=== PATIENT | female | born 1985 | race Caucasian/White ===

== ENCOUNTER 2016-12-18 13:00 | Inpatient (IN) | payer OTHER ==
[2016-12-18] MEDS ORDERED: AMPICILLIN - 2 GM in SODIUM CHLORIDE 100 ML IVPB ONE ×2 (17:36→18:15)
[2016-12-18] MEDS ORDERED: DEXTROSE 5%-LACTATED RINGERS 1,000 ML IV ONE (18:15)
[2016-12-18] MEDS ORDERED: TUBERCULIN PPD 5 TU/0.1ML SYRINGE (IN PATIENT USE ONLY) ID ONE (18:15)
[2016-12-18 18:36] LABS: BASOPHIL 0.3 % (0-2.0); EOSINOPHIL 0.7 % (0-4.5); MCH 26.6 pg (25.7-33.7); MCHC 32.6 g/dl (32.0-36.0); MEAN CELL VOLUME 81.5 fl (80-96); MEAN PLT VOLUME 10.6 fl (7.5-11.1); NEUTROPHILS 68.4 % (42.8-82.8); PLATELET COUNT 183 K/MM3 (134-434); WHITE BLOOD COUNT 10.1 K/mm3 (4.0-10.0)
[2016-12-18 18:41] LABS: INR 1.03 (0.82-1.09); PROTHROMBIN TIME (PATIENT) 11.3 SEC (9.98-11.88)
[2016-12-18 18:44] LABS: ACTIVATED PTT 26.8 SECONDS (26.9-34.4)
[2016-12-18 19:07] LABS: CALCIUM 8.9 mg/dL (8.5-10.1); COCKROFT - GAULT 0.8245; CREATININE 0.7 mg/dL (0.55-1.02)
[2016-12-18 20:31] VITALS: BP 122/72; PULSE 76; TEMP 98.2
--- NOTE | 2016-12-18 20:53 | HP ---
Past Medical History - Primary Care Physician PCP:: Corrine Villegas - Admission Chief Complaint: r/o Sponntaneous rupture of membranes. IUp at 37.2 weeks History of Present Illness: 31 yo EDC 01/06/17 ega 37.2 weeks admitted due to possible rupture of membranes History Source: Patient - Past Medical History ...: 5 ...Para: 2 ...Term: 2 ...: 0 ...Spon : 0 ...Induced : 2 ...LMP: 04/02/16 ... Weeks Gestation by Dates: 37.1 ...EDC by Dates: 01/07/17 ...EDC by Sono: 01/06/17 - Past Surgical History Past Surgical History: Yes: Cholecystectomy Hx Myomectomy: No Hx Transabdominal Cerclage: No - Smoking History Smoking history: Never smoked Have you smoked in the past 12 months: No Aproximately how many cigarettes per day: 0 - Alcohol/Substance Use Hx Alcohol Use: No Home Medications - Allergies Allergies/Adverse Reactions: Allergies Allergy/AdvReac Type Severity Reaction Status Date / Time shellfish derived Allergy Severe Swelling Verified 12/18/16 17:05 - Home Medications Home Medications: Ambulatory Orders Acyclovir [Zovirax -] 400 mg PO TID 12/18/16 Review of Systems - Review of Systems Constitutional: reports: No Symptoms Eyes: reports: No Symptoms HENT: reports: No Symptoms Neck: reports: No Symptoms Cardiovascular: reports: No Symptoms Respiratory: reports: No Symptoms Gastrointestinal: reports: No Symptoms Genitourinary: reports: No Symptoms Breasts: reports: No Symptoms Reported Musculoskeletal: reports: No Symptoms Integumentary: reports: No Symptoms Neurological: reports: No Symptoms Endocrine: reports: No Symptoms Hematology/Lymphatic: reports: No Symptoms Psychiatric: reports: No Symptoms Physical Exam - Maternity Vital Signs: Vital Signs Temperature 98.2 F 12/18/16 20:00 Pulse Rate 76 12/18/16 20:00 Respiratory Rate 18 12/18/16 20:00 Blood Pressure 122/72 12/18/16 20:00 O2 Sat by Pulse Oximetry (%) Constitutional: Yes: Well Nourished, No Distress Cardiovascular: Yes: WNL Lungs: Clear to auscultation Breast(s): Yes: WNL - Abdominal Exam/OB Fundal Height: 37 Number of Fetuses: Single Presentation: Vertex Contractions: Yes Regularity: Irregular Monitor Mode: External Category: I Accelerations: Non-Uniform Decelerations: None - Vaginal Exam/OB Speculum Exam: Yes (yellow discharge) Dilatation (cm): 1 cm Effacement (%): long Amniotic Membrane Status: Intact Presentation: Vertex/Position - Physical Exam Musculoskeletal: Yes: WNL Edema: No Integumentary: Yes: WNL Psychiatric: Yes: WNL, Alert, Oriented - Labs Lab Results: CBC, BMP 12/18/16 17:30 12/18/16 17:30 Hemorrhage Risk Assessment - Risk Factors Risk Score: 0 Risk Level: Low Risk Problem List - Problems (1) False labor after 37 weeks of gestation without delivery Code(s): O47.1 - FALSE LABOR AT OR AFTER 37 COMPLETED WEEKS OF GESTATION Assessment/Plan False labor Cat 1 IUP at 37.1 week by dates SEBASTIAN 10 cm Plan DC home RTO tomorrow
--- NOTE | 2016-12-18 21:07 | DS ---
Physical Exam-SCALE OPERATOR Vital Signs: Vital Signs Temperature 98.2 F 12/18/16 20:00 Pulse Rate 76 12/18/16 20:00 Respiratory Rate 18 12/18/16 20:00 Blood Pressure 122/72 12/18/16 20:00 O2 Sat by Pulse Oximetry (%) Constitutional: Yes: Well Nourished, No Distress Labs: CBC, BMP 12/18/16 17:30 12/18/16 17:30 Delivery, Single - Feeding Plan Initial Plan: Elected not to breastfeed exclusively throughout hospitalization Discharge Summary Reason For Visit: False labor Current Active Problems False labor after 37 weeks of gestation without delivery (Acute) Hospital Course: IV hydration Condition: Good - Instructions Diet, Activity, Other Instructions: Keep next appointment at private office on 12/19/2016. Return to Labor and Delivery for any of the following: -Regular Contractions -Ruptured Membranes -Vaginal Bleeding -Decreased Movement Any questions or concerns, call Labor and Delivery at [phone]. Referrals: Corrine Villegas MD [Staff Physician] - Disposition: HOME - Home Medications Comprehensive Discharge Medication List: Ambulatory Orders Acyclovir [Zovirax -] 400 mg PO TID 12/18/16
[2016-12-18] MEDS ORDERED: AMPICILLIN - 1 GM in SODIUM CHLORIDE 100 ML IVPB SCH ×2 (21:36→22:00)
[2016-12-18] MEDS ORDERED: ACYCLOVIR 400 MG TABLET PO SCH (22:00)
== END 2016-12-18 21:00 | disposition home or self-care (01) | DRG 780 ==
LOC: JDEL 13:00 → JLDR 17:00
PROVIDERS: ADMIT Obstetrics & Gynecology; ATTEND Obstetrics & Gynecology
DX: O47.03 False labor before 37 completed weeks of gestation, third trimester (principal); Z3A.37 37 weeks gestation of pregnancy
CPT/HCPCS: 36415; 76801-TC; 80048; 85025; 85610; 85730; 86593; 86850; 86900; 86901

== ENCOUNTER 2016-12-25 11:50 | Inpatient (IN) | payer OTHER ==
[2016-12-25] MEDS ORDERED: BUTORPHANOL TARTRATE 1 MG/ML VIAL IVPB ONE (12:42)
[2016-12-25] MEDS ORDERED: AMPICILLIN - 2 GM in SODIUM CHLORIDE 100 ML IVPB ONE (12:44)
[2016-12-25] MEDS: DEXTROSE 5%-LACTATED RINGERS 1,000 ML IV SCH ×2 (13:00→17:29)
[2016-12-25 13:11] VITALS: BMI 29.2
[2016-12-25] MEDS: AMPICILLIN - 1 GM in SODIUM CHLORIDE 100 ML IVPB SCH ×2 (16:48→20:56)
--- NOTE | 2016-12-25 21:07 | HP ---
Past Medical History - Primary Care Physician PCP:: Corrine Villegas - Admission Chief Complaint: Spontaneous rupture of membranes History of Present Illness: 31 yo EDC 01/06/17 EGA 38.2 week admited with spontaeous rupture of membranes +AFM no BLEEDING, GALLO, care significant for HSV taken yesterday RH negative x 2 01/2001 History Source: Patient - Past Medical History ...: 5 ...Para: 2 ...Term: 2 ...: 0 ...Spon : 0 ...Induced : 2 ...Multiple Gestation: 0 ...LMP: 04/02/16 ... Weeks Gestation by Dates: 38.2 ...EDC by Dates: 01/06/17 ...EDC by Sono: 01/06/17 - Past Surgical History Past Surgical History: Yes: Cholecystectomy Hx Myomectomy: No Hx Transabdominal Cerclage: No - Smoking History Smoking history: Never smoked Have you smoked in the past 12 months: No Aproximately how many cigarettes per day: 0 - Alcohol/Substance Use Hx Alcohol Use: No History of Substance Use: reports: None - Social History Usual Living Arrangement: Yes: With Spouse History of Recent Travel: No Home Medications - Allergies Allergies/Adverse Reactions: Allergies Allergy/AdvReac Type Severity Reaction Status Date / Time shellfish derived Allergy Severe Swelling Verified 12/25/16 14:22 - Home Medications Home Medications: Ambulatory Orders Acyclovir [Zovirax -] 400 mg PO TID 12/18/16 Review of Systems - Review of Systems Constitutional: reports: No Symptoms Eyes: reports: No Symptoms HENT: reports: No Symptoms Neck: reports: No Symptoms Cardiovascular: reports: No Symptoms Respiratory: reports: No Symptoms Gastrointestinal: reports: No Symptoms Genitourinary: reports: No Symptoms Breasts: reports: No Symptoms Reported Musculoskeletal: reports: No Symptoms Integumentary: reports: No Symptoms Neurological: reports: No Symptoms Endocrine: reports: No Symptoms Hematology/Lymphatic: reports: No Symptoms Psychiatric: reports: No Symptoms Physical Exam - Maternity Vital Signs: Vital Signs Temperature 99.0 F 12/25/16 20:00 Pulse Rate 71 12/25/16 20:00 Respiratory Rate 20 12/25/16 20:00 Blood Pressure 114/62 12/25/16 20:00 O2 Sat by Pulse Oximetry (%) Constitutional: Yes: Well Nourished, No Distress, Calm Cardiovascular: Yes: WNL, Regular Rate and Rhythm Breast(s): Yes: WNL - Abdominal Exam/OB Number of Fetuses: Single Presentation: Vertex Contractions: Yes Category: I Accelerations: Non-Uniform Decelerations: None - Vaginal Exam/OB Dilatation (cm): 2 Effacement (%): 70 Amniotic Membrane Status: Ruptured Presentation: Vertex/Position Station: -2 - Physical Exam Musculoskeletal: Yes: WNL Extremities: Yes: WNL Edema: No Integumentary: Yes: WNL Assessment/Plan SROM IUP at 38 weeks 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
[2016-12-25] MEDS: OXYTOCIN 15 UNITS/ LR 250 ML 250 ML IVPB SCH ×2 (21:15→22:15)
[2016-12-26] MEDS: OXYTOCIN 15 UNITS/ LR 250 ML 250 ML IVPB SCH ×3 (00:30→01:18)
[2016-12-26] MEDS: AMPICILLIN - 1 GM in SODIUM CHLORIDE 100 ML IVPB SCH (00:53)
--- NOTE | 2016-12-26 02:24 | PN ---
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
[2016-12-26] MEDS ORDERED: BENZOCAINE 28 GM HEMORRHOIDAL OINTMENT PR PRN (02:33)
[2016-12-26] MEDS ORDERED: BENZOCAINE 20% 57 GM BOTTLE TP PRN (02:33)
[2016-12-26] MEDS ORDERED: BISACODYL 10 MG SUPP.RECT RC PRN (02:33)
[2016-12-26] MEDS ORDERED: METHYLERGONOVINE MALEATE 0.2 MG/1 ML AMP IM PRN (02:33)
[2016-12-26] MEDS ORDERED: WITCH HAZEL 50% (TUCKS) 40 PAD/JAR PAD TP PRN (02:33)
[2016-12-26 02:47] LABS: ARTERIAL BLD GAS O2 SATURATION 25.1 % (90-98.9); ARTERIAL BLOOD GAS BASE EXCESS -4.2 meq/l (-2-2); ARTERIAL BLOOD GAS HCO3 25.5 meq/L (22-26)
[2016-12-26 02:48] LABS: ART PUNCT SITE OTHER
[2016-12-26 02:52] LABS: ARTERIAL BLOOD GAS PO2 18.7 mmHg (80-100)
[2016-12-26 02:55] LABS: VENOUS PH 7.31 (7.32-7.42)
[2016-12-26 02:56] LABS: VENOUS BLOOD GAS HCO3 22.3 meq/L (19-25)
[2016-12-26] MEDS: D5W-LR W/ 20 UNITS OXYTOCIN 1,000 ML IV SCH (05:04)
[2016-12-26] MEDS: ACETAMINOPHEN 325 MG TABLET (FP) PO PRN ×3 (05:06→14:59)
[2016-12-26] MEDS: IBUPROFEN 600 MG TABLET (FP) PO PRN ×3 (05:07→14:59)
[2016-12-26] MEDS ORDERED: DIPHTH,PERTUSS(ACELL),TET 0.5 ML DISP.SYRIN IM ONE (20:00)
--- NOTE | 2016-12-27 07:06 | PN ---
Post Progress Note - Subjective Subjective: Pt seen/evaluated and doing well. Pain controlled, tolerating diet, ambulating voiding. VB minimal. Denies CP/SOB/F/C/GALLO. No other issues/concerns. Type of Delivery: Vital Signs: Vital Signs Temperature 97.9 F 12/27/16 02:00 Pulse Rate 76 12/27/16 02:00 Respiratory Rate 18 12/27/16 02:00 Blood Pressure 119/69 12/27/16 02:00 O2 Sat by Pulse Oximetry (%) 97 12/26/16 03:00 Uterus: Yes: Fundus Firm, Fundus below umbilicus Abdomen/GI: Yes: Abdomen soft, Passing flatus, Tolerating PO. No: Abdominal Distention, Tender Lochia: Yes: Rubra Lochia, amount: Small Extremities: Yes: Calves non-tender, Edema (trace LE edema b/l, non pitting) Activity: Ambulating Assessment/Plan 31 y/o PPD#1 s/p normal - AFVSS - CBC pending this a.m. - encourage ambulation, regular diet, PO pain meds, routine care
[2016-12-27 08:38] LABS: BASOPHIL 0.6 % (0-2.0); EOSINOPHIL 1.4 % (0-4.5); MCH 27.1 pg (25.7-33.7); MCHC 32.8 g/dl (32.0-36.0); MEAN CELL VOLUME 82.6 fl (80-96); MEAN PLT VOLUME 10.2 fl (7.5-11.1); NEUTROPHILS 63.9 % (42.8-82.8); PLATELET COUNT 156 K/MM3 (134-434); RDW 13.8 % (11.6-15.6); WHITE BLOOD COUNT 10.9 K/mm3 (4.0-10.0)
[2016-12-27] MEDS: D5W-LR W/ 20 UNITS OXYTOCIN 1,000 ML IV SCH (13:54)
[2016-12-27] MEDS: ACETAMINOPHEN 325 MG TABLET (FP) PO PRN ×2 (13:55→22:02)
[2016-12-27] MEDS: IBUPROFEN 600 MG TABLET (FP) PO PRN ×2 (13:56→22:03)
--- NOTE | 2016-12-28 08:03 | DS ---
Physical Exam-FOOD AND BEVERAGE CASHIER Vital Signs: Vital Signs Temperature 98.2 F 12/27/16 22:00 Pulse Rate 78 12/27/16 22:00 Respiratory Rate 18 12/27/16 22:00 Blood Pressure 118/63 12/27/16 22:00 O2 Sat by Pulse Oximetry (%) 97 12/26/16 03:00 Labs: CBC, BMP 12/27/16 08:26 Delivery - Delivery Vaginal Delivery: No Problems, Spontaneous Type of Anesthesia: None Episiotomy/Laceration: None EBL (cc): 350 Delivery, Single - Stages of Labor Date 1st Stage Initiatied: 12/25/16 Time 1st Stage Initiated: 23:30 Date 2nd Stage Initiated: 12/26/16 Time 2nd Stage Initiated: 01:40 Date of Delivery: 12/26/16 Time of Delivery: 02:04 Time Placenta Delivered: 02:07 Placenta: Yes: Spontaneous - Condition of General Manager Farm/Adolescent Specialist Present: No Infant Gender: Female Weight: 7 lb Position: OA Total Hours ROM (Hrs/Mins): 14 hours 37 minutes - 1 Minute Total Score: 9 5 Minutes Total Score: 9 - Feeding Plan Initial Plan: Elected not to breastfeed exclusively throughout hospitalization Benefits of Exclusively reinforced: Yes Discharge Summary Procedures: Principal: normal Hospital Course: unremarkable post recovery Condition: Good - Instructions Diet, Activity, Other Instructions: Dr. Corrine Villegas OBGyn discharge instructions Physical activity Resume your normal everyday activity as tolerated no heavy lifting or exercise until seen by your surgeon. You may walk unlimited sedrick of and climb stairs. You may resume driving the car when you feel safe and comfortable behind the wheel. No sexual activity as instructed by Dr. Villegas. Wound care If you have a bandage, leave it on, and keep dry for 48-72 hours. After that time discard the outer bandage. If they are tapes on the skin under the out of bandage leave them in place. They will peel off in the next 7 to 10 days. Do Not Peel them off. You may shower the day after surgery. If there are tapes present on the skin, you may shower over them. Diet There are no dietary restrictions. Eat healthy, high-fiber foods. Drink 6 to 8 glasses of liquid each day. This will assist in keeping your bowels are regular. Pain management You may take Tylenol or acetaminophen or Ibuprofen (for example, Motrin, Advil etc.) from my pain prescription medication is ordered should be taken as prescribed for moderate to severe pain. Call Dr. Villegas for any of the following: Severe pain not relieved by medication Fever of 101 or higher Excessive bleeding or drainage on dressing Inability to urinate Call the office at [phone] for an appointment in seven days. Referrals: Corrine Villegas MD [Staff Physician] - Disposition: HOME - Home Medications Comprehensive Discharge Medication List: Ambulatory Orders Acyclovir [Zovirax -] 400 mg PO TID 12/18/16 Ibuprofen [Motrin -] 600 mg PO QID PRN #28 tablet 12/26/16
[2016-12-28 11:17] VITALS: BP 125/75; PULSE 64; TEMP 99.1
== END 2016-12-28 13:20 | disposition home or self-care (01) | DRG 560 ==
LOC: JDEL 11:50 → JLDR 12:15 → J3W 12-26 04:50
PROVIDERS: ADMIT Obstetrics & Gynecology; ATTEND Obstetrics & Gynecology
PROC: 10E0XZZ Delivery of Products of Conception, External Approach (ICD-10-PCS; principal; 2016-12-26)
PROC: 30233S1 Transfusion of Nonautologous Globulin into Peripheral Vein, Percutaneous Approach (ICD-10-PCS; 2016-12-26)
DX: O80 Encounter for full-term uncomplicated delivery (principal); Z3A.38 38 weeks gestation of pregnancy; Z37.0 Single live birth
CPT/HCPCS: 36415; 36600; 59409; 82803; 85025; 85461; 86850; 86900; 86901; 86999; 90715

== ENCOUNTER 2018-08-25 10:16 | Emergency (ER) | payer OTHER ==
[2018-08-25 10:26] VITALS: BP 128/53; PULSE 104; TEMP 99.1; BMI 27.3
[2018-08-25] MEDS ORDERED: DEXAMETHASONE LIQUID 0.5 MG/5 ML 240 ML BULK BOTTLE PO ONE (10:38)
[2018-08-25] MEDS ORDERED: IBUPROFEN 400 MG TABLET (FP) PO ONE ×2 (10:38→10:42)
[2018-08-25] MEDS ORDERED: PENICILLIN G BENZATHINE 1,200,000 UNIT/2 ML PFS IM ONE (10:38)
[2018-08-25] MEDS ORDERED: DEXAMETHASONE SOD PHOSPHATE 10 MG/1 ML VIAL ONE (10:42)
[2018-08-25] MEDS ORDERED: PENICILLIN G BENZATHINE 2,400,000 UNIT/4 ML PFS ONE (10:43)
--- NOTE | 2018-08-25 11:13 | PDOC ---
History of Present Illness - General Chief Complaint: Cold Symptoms Stated Complaint: SORE THROAT, FEVER Time Seen by Provider: 08/25/18 10:26 History Source: Patient Exam Limitations: No Limitations Past History - Past Medical History Allergies/Adverse Reactions: Allergies Allergy/AdvReac Type Severity Reaction Status Date / Time shellfish derived Allergy Severe Swelling Verified 08/25/18 10:37 Home Medications: Ambulatory Orders NK [No Known Home Medication] 08/25/18 Asthma: No Cancer: No Cardiac Disorders: No COPD: No Diabetes: No HTN: No Seizures: No Thyroid Disease: No - Surgical History Cholecystectomy: Yes - Suicide/Smoking/Psychosocial Hx Smoking Status: No Smoking History: Never smoked Have you smoked in the past 12 months: No Number of Cigarettes Smoked Daily: 0 Hx Alcohol Use: No Drug/Substance Use Hx: No Substance Use Type: None Hx Substance Use Treatment: No *Physical Exam - Vital Signs Last Vital Signs Temp Pulse Resp BP Pulse Ox 99.1 F 104 H 18 128/53 L 100 08/25/18 10:23 08/25/18 10:23 08/25/18 10:23 08/25/18 10:23 08/25/18 10:23 - Physical Exam General Appearance: No: Apparent Distress HEENT: positive: Normal Voice, Pharyngeal Erythema, Tonsillar Exudate. negative : Muffled/Hoarse voice, Nasal Congestion, Rhinorrhea Neck: positive: Lymphadenopathy (R) (B/L tonsillar lymphadenopathy), Lymphadenopathy (L) Respiratory/Chest: positive: Lungs Clear, Normal Breath Sounds. negative: Respiratory Distress Cardiovascular: positive: Regular Rhythm, Regular Rate Integumentary: positive: Normal Color Neurologic: positive: Alert, Normal Mood/Affect Moderate Sedation - Procedure Monitoring Vital Signs: Procedure Monitoring Vital Signs Temperature 99.1 F 08/25/18 10:23 Pulse Rate 104 H 08/25/18 10:23 Respiratory Rate 18 08/25/18 10:23 Blood Pressure 128/53 L 08/25/18 10:23 O2 Sat by Pulse Oximetry (%) 100 08/25/18 10:23 ED Treatment Course - Medications Given in the ED: ED Medications Discontinued Medications Generic Name Dose Route Start Last Admin Trade Name Freq PRN Reason Stop Dose Admin Dexamethasone 10 mg 08/25/18 10:38 08/25/18 10:48 Decadron Liquid - PO 02/18/19 10:39 10 mg ONCE ONE Administration Ibuprofen 800 mg 08/25/18 10:38 08/25/18 10:48 Motrin - PO 08/25/18 10:39 800 mg ONCE ONE Administration Penicillin G Benzathine 1,200,000 unit 08/25/18 10:38 08/25/18 10:47 Bicillin L-A - IM 08/25/18 10:39 1,200,000 unit ONCE ONE Administration Medical Decision Making - Medical Decision Making 33 y/o F with no sig pmh presents mentioning having slight cold with rhinorrhea and mild sore throat last week, but got better. However, yesterday, awoke with severe throat pain, pain on swallowing foods and fever (did not check temperature). Mentions was brushing her tongue and spit up some blood. Denies taking any antipyretics today. Denies sob, cp, cough, hemoptysis, abd pain, n/v/ d. PE consistent with likely strep pharyngitis Patient treated with Motrin, Decadron and Penicillin Patient mentions feeling better on reassessment stable for dc 08/25/18 11:08 *DC/Admit/Observation/Transfer Diagnosis at time of Disposition: Strep pharyngitis - Discharge Dispostion Disposition: HOME Condition at time of disposition: Stable Decision to Admit order: No - Referrals - Patient Instructions Printed Discharge Instructions: DI for Strep Throat Additional Instructions: Thank you for choosing [facility]. It was a pleasure taking care of you. You may take Motrin 600 mg every 4 hours by mouth as needed for mild to moderate pain. Take Motrin with food. Do salt water gargles Use lozenges if needed for pain Follow-up with your PCP in 2-3 days. Return to the Emergency Department if your symptoms worsen or persist or have other concerning symptoms. - Post Discharge Activity
== END 2018-08-25 11:17 | disposition home or self-care (01) ==
LOC: JERFT 10:16
DX: J02.0 Streptococcal pharyngitis (principal); B95.5 Unspecified streptococcus as the cause of diseases classified elsewhere
CPT/HCPCS: 96372; 99281-25

== ENCOUNTER 2018-12-29 21:08 | Emergency (ER) | payer OTHER ==
--- NOTE | 2018-12-29 21:15 | PDOC ---
Rapid Medical Evaluation Time Seen by Provider: 12/29/18 21:10 Medical Evaluation: Allergies Allergy/AdvReac Type Severity Reaction Status Date / Time shellfish derived Allergy Severe Swelling Verified 08/25/18 10:37 12/29/18 21:10 I have performed a brief in-person evaluation of this patient. The patient presents with a chief complaint of: sore throat, fever Pertinent physical exam findings: OP erythematous. I have ordered the following: rapid strep, tylenol, decadron The patient will proceed to the ED for further evaluation. Discharge Disposition - Diagnosis Pharyngitis - Referrals - Patient Instructions - Post Discharge Activity
[2018-12-29] MEDS ORDERED: IBUPROFEN 600 MG TABLET (FP) PO ONE ×2 (21:16→21:26)
[2018-12-29] MEDS ORDERED: ACETAMINOPHEN 325 MG TABLET (FP) PO ONE (21:16)
[2018-12-29] MEDS ORDERED: DEXAMETHASONE LIQUID 0.5 MG/5 ML 240 ML BULK BOTTLE PO ONE (21:16)
[2018-12-29 21:17] VITALS: BP 115/61; PULSE 131; TEMP 102.3; BMI 26.2
[2018-12-29] MEDS ORDERED: DEXAMETHASONE SOD PHOSPHATE 10 MG/1 ML VIAL ONE (21:25)
[2018-12-29] MEDS ORDERED: ACETAMINOPHEN 325 MG TABLET (FP) ONE (21:25)
[2018-12-29] MEDS ORDERED: PENICILLIN G BENZATHINE 1,200,000 UNIT/2 ML PFS IM ONE (22:32)
--- NOTE | 2018-12-29 22:34 | PDOC ---
History of Present Illness - General Chief Complaint: Sore Throat Stated Complaint: SORE THROAT Time Seen by Provider: 12/29/18 21:10 - History of Present Illness Initial Comments: 12/29/18 22:32 33-year-old female with sore throat and fever times one day Past History - Past Medical History Allergies/Adverse Reactions: Allergies Allergy/AdvReac Type Severity Reaction Status Date / Time shellfish derived Allergy Severe Swelling Verified 08/25/18 10:37 Home Medications: Ambulatory Orders NK [No Known Home Medication] 08/25/18 Asthma: No Cancer: No Cardiac Disorders: No COPD: No Diabetes: No HTN: No Seizures: No Thyroid Disease: No - Surgical History Cholecystectomy: Yes - Suicide/Smoking/Psychosocial Hx Smoking Status: No Smoking History: Never smoked Have you smoked in the past 12 months: No Number of Cigarettes Smoked Daily: 0 Information on smoking cessation initiated: No Hx Alcohol Use: No Drug/Substance Use Hx: No Substance Use Type: None Hx Substance Use Treatment: No Review of Systems - Review of Systems Constitutional: Yes: Fever HEENTM: Yes: Throat Pain, Difficulty Swallowing *Physical Exam - Vital Signs Last Vital Signs Temp Pulse Resp BP Pulse Ox 102.3 F H 131 H 18 115/61 100 12/29/18 21:14 12/29/18 21:14 12/29/18 21:14 12/29/18 21:14 12/29/18 21:14 - Physical Exam Comments: 12/29/18 22:32 HEAD: NC/AT EYES: Conjuntiva clear Ears: Canals and TM's normal NOSE: No d/c THROAT: Moist mucous membrances, oral pharanx erythemic with exudate, uvula midline NECK: Supple without adenopathy CARDIAC: S1 S2 LUNGS: CTA Full and Equal breath sounds ABDOMEN: Soft NT ND MS: Full ROM in all joints without edema NEUROLOGIC: No gross sensory or motor deficits, NVID SKIN: Normal color and temperature no lesions or rashes ED Treatment Course - Medications Given in the ED: ED Medications Discontinued Medications Generic Name Dose Route Start Last Admin Trade Name Freq PRN Reason Stop Dose Admin Acetaminophen 650 mg 12/29/18 21:16 12/29/18 21:32 Tylenol - PO 12/29/18 21:17 650 mg ONCE ONE Administration Dexamethasone 10 mg 12/29/18 21:16 12/29/18 21:32 Decadron Liquid - PO 12/29/18 21:17 10 mg ONCE ONE Administration Ibuprofen 600 mg 12/29/18 21:16 12/29/18 21:32 Motrin - PO 12/29/18 21:17 600 mg ONCE ONE Administration Medical Decision Making - Medical Decision Making 12/29/18 22:33 Positive rapid strep, patient elected Bicillin injection. This was ordered *DC/Admit/Observation/Transfer Diagnosis at time of Disposition: Pharyngitis, Strep pharyngitis - Discharge Dispostion Disposition: HOME Condition at time of disposition: Stable Decision to Admit order: No - Referrals Referrals: Yaa White MD [Staff Physician] - - Patient Instructions Printed Discharge Instructions: DI for Strep Throat, Strep Throat Additional Instructions: Return to the emergency room for worsening symptoms. Tylenol for pain. We do not require home antibiotics were given a one time injection of penicillin. Follow-up with internal medicine 1-2 days for further evaluation and treatment options. Warm saltwater gargles 5-6 times a day with [employer] throat pain. Tylenol for pain as directed. - Post Discharge Activity
[2018-12-29] MEDS ORDERED: PENICILLIN G BENZATHINE 2,400,000 UNIT/4 ML PFS ONE (22:37)
== END 2018-12-29 22:45 | disposition home or self-care (01) ==
LOC: JERFT 21:08
DX: J02.0 Streptococcal pharyngitis (principal); B95.0 Streptococcus, group A, as the cause of diseases classified elsewhere
CPT/HCPCS: 87880; 96372; 99281-25

== ENCOUNTER 2023-03-08 18:23 | Emergency (ER) | payer OTHER ==
[2023-03-08 18:28] VITALS: BMI 26.6
[2023-03-08] MEDS ORDERED: ACETAMINOPHEN 500 MG TABLET (FP) PO ONE (19:46)
[2023-03-08] MEDS ORDERED: LIDOCAINE 5% TOPICAL PATCH TP ONE (19:46)
[2023-03-08] MEDS ORDERED: LIDOCAINE 5% TOPICAL PATCH ONE (19:48)
[2023-03-08] MEDS ORDERED: ACETAMINOPHEN 500 MG TABLET (FP) ONE (19:49)
[2023-03-08] MEDS ORDERED: LIDOCAINE PATCH REMOVAL MC SCH (22:00)
[2023-03-08 23:12] VITALS: BP 109/67; PULSE 76; RESP 20; TEMP 98.4
== END 2023-03-09 01:55 | disposition home or self-care (01) ==
LOC: JER 18:23 → JERFT 18:23 → JER 03-09 01:55
DX: O9A.213 Injury, poisoning and certain other consequences of external causes complicating pregnancy, third trimester (principal); M54.50 Low back pain, unspecified; R51.9 Headache, unspecified; Z3A.28 28 weeks gestation of pregnancy; V43.12XA Car passenger injured in collision with other type car in nontraffic accident, initial encounter; Y92.481 Parking lot as the place of occurrence of the external cause
CPT/HCPCS: 76819-TC; 99284-25

== ENCOUNTER 2023-05-21 07:30 | Inpatient (IN) | payer OTHER ==
[2023-05-21] MEDS: ELECTROLYTE-148 SOLN 1,000 ML IV SCH (08:00)
[2023-05-21 08:59] VITALS: BMI 29.2
[2023-05-21 10:06] LABS: BASO % 0.5 % (0-2.0); EOS % 0.6 % (0-4.5); HEMATOCRIT 35.5 % (32.4-45.2); HEMOGLOBIN 11.8 GM/dL (10.7-15.3); LYMPH % 17.1 % (8-40); MCH 29.9 pg (25.7-33.7); MCHC 33.3 g/dl (32.0-36.0); MEAN CELL VOLUME 89.7 fl (80-96); MONO % 7.6 % (3.8-10.2); NEUT % 74.2 % (42.8-82.8); RBC 3.95 M/mm3 (3.60-5.2); RDW 12.7 % (11.6-15.6); WHITE BLOOD COUNT 8.7 K/mm3 (4.0-10.0)
[2023-05-21 10:11] LABS: INR 0.96 (0.83-1.09); PROTHROMBIN TIME (PATIENT) 11.1 SEC (9.7-13.0)
[2023-05-21 10:14] LABS: ACTIVATED PTT 26.5 SECONDS (25.2-36.5)
[2023-05-21 10:22] LABS: CALCIUM 8.5 mg/dL (8.5-10.1)
[2023-05-21 10:23] LABS: BLOOD UREA NITROGEN 7.4 mg/dL (7-18)
[2023-05-21 10:26] LABS: CREATININE 0.7 mg/dL (0.55-1.3)
[2023-05-21 11:22] LABS: MEAN PLT VOLUME 10.8 fl (7.5-11.1); PLATELET COUNT 163 10^3/uL (134-434)
[2023-05-21] MEDS ORDERED: OXYTOCIN 30 UNITS in 0.9% NS 30 UNIT/500 ML INFUS.BAG IVPB ONE (17:44)
[2023-05-21] MEDS: OXYTOCIN 30 UNITS in 0.9% NS 30 UNIT/500 ML INFUS.BAG IVPB SCH (18:21)
[2023-05-21] MEDS ORDERED: PROMETHAZINE HCL 25 MG/1 ML VIAL ONE (20:12)
[2023-05-21] MEDS ORDERED: BUTORPHANOL TARTRATE 2 MG/ML VIAL ONE (20:12)
[2023-05-21] MEDS ORDERED: PROMETHAZINE HCL 25 MG/1 ML VIAL IVPB ONE (20:30)
[2023-05-21] MEDS ORDERED: BUTORPHANOL TARTRATE 2 MG/ML VIAL IVPB ONE (20:30)
[2023-05-21] MEDS ORDERED: OXYTOCIN 20 UNITS in 0.9% NS 20 UNIT/1,000 ML INFUS.BAG IV ONE (23:05)
[2023-05-21] MEDS ORDERED: LIDOCAINE HCL 1% PRESERVATIVE FREE - 30ML VIAL ONE (23:05)
[2023-05-21] MEDS ORDERED: OXYTOCIN 20 UNITS in 0.9% NS 20 UNIT/1,000 ML INFUS.BAG IV SCH (23:45)
[2023-05-21] MEDS ORDERED: BENZOCAINE 20% 57 GM BOTTLE TP PRN (23:48)
[2023-05-21] MEDS ORDERED: METHYLERGONOVINE MALEATE 0.2 MG/1 ML AMP IM PRN (23:48)
[2023-05-21] MEDS ORDERED: BENZOCAINE 28 GM HEMORRHOIDAL OINTMENT TP PRN (23:48)
[2023-05-21] MEDS ORDERED: WITCH HAZEL 50% (TUCKS) 40 PAD/JAR PAD TP PRN (23:48)
[2023-05-21] MEDS ORDERED: BISACODYL 10 MG SUPP.RECT RC PRN (23:48)
[2023-05-21] MEDS ORDERED: oxyCODONE HCL 5 MG TABLET PO PRN (23:48)
[2023-05-22] MEDS: IBUPROFEN 600 MG TABLET (FP) PO PRN ×3 (07:54→23:51)
[2023-05-22] MEDS: FERROUS SO4 325 MG TABLET (FP) PO SCH ×3 (07:54→17:18)
[2023-05-22 08:09] LABS: BASO % 0.2 % (0-2.0); HEMATOCRIT 35.4 % (32.4-45.2); HEMOGLOBIN 11.7 GM/dL (10.7-15.3); LYMPH % 6.6 % (8-40); MCH 29.8 pg (25.7-33.7); MCHC 32.9 g/dl (32.0-36.0); MEAN CELL VOLUME 90.6 fl (80-96); MEAN PLT VOLUME 10.7 fl (7.5-11.1); MONO % 6.4 % (3.8-10.2); NEUT % 86.8 % (42.8-82.8); PLATELET COUNT 155 10^3/uL (134-434); RBC 3.91 M/mm3 (3.60-5.2); RDW 12.6 % (11.6-15.6); WHITE BLOOD COUNT 15.3 K/mm3 (4.0-10.0)
[2023-05-22] MEDS: PRENATAL VITAMINS W/ FOLIC ACID TABLET (FP) PO SCH (09:39)
[2023-05-22] MEDS ORDERED: DIPHTH,PERTUSS(ACELL),TET 0.5 ML DISP.SYRIN IM ONE (10:00)
[2023-05-22] MEDS: ELECTROLYTE-148 SOLN 1,000 ML IV SCH (12:06)
[2023-05-22] MEDS: ACETAMINOPHEN 325 MG TABLET (FP) PO PRN (12:10)
[2023-05-22 13:45] LABS: POC NITRAZINE POS
[2023-05-22] MEDS: OXYTOCIN 30 UNITS in 0.9% NS 30 UNIT/500 ML INFUS.BAG IVPB SCH (17:22)
[2023-05-22 19:29] VITALS: RESP 18
[2023-05-22] MEDS ORDERED: SENNOSIDES/DOCUSATE COMBO (SENNA PLUS) TABLET (UD) PO PRN (22:00)
[2023-05-23] MEDS: ACETAMINOPHEN 325 MG TABLET (FP) PO PRN (06:08)
[2023-05-23 08:40] VITALS: BP 109/65; PULSE 65; TEMP 97.8
[2023-05-23] MEDS: FERROUS SO4 325 MG TABLET (FP) PO SCH ×2 (08:44→12:51)
[2023-05-23] MEDS: PRENATAL VITAMINS W/ FOLIC ACID TABLET (FP) PO SCH (10:19)
[2023-05-23] MEDS: IBUPROFEN 600 MG TABLET (FP) PO PRN (10:37)
== END 2023-05-23 16:23 | disposition home or self-care (01) | DRG 560 ==
LOC: JLDR 07:30 → J3W 05-22 00:57
PROVIDERS: ADMIT Obstetrics & Gynecology; ATTEND Obstetrics & Gynecology
PROC: 10E0XZZ Delivery of Products of Conception, External Approach (ICD-10-PCS; principal; 2023-05-21)
DX: O80 Encounter for full-term uncomplicated delivery (principal); Z3A.39 39 weeks gestation of pregnancy; Z37.0 Single live birth
CPT/HCPCS: 36415; 80048; 83986-QW; 85025; 85610; 85730; 86780; 86850; 86900; 86901; 90715